=== PATIENT | male | born 1990 | race Caucasian/White ===

== ENCOUNTER 2017-09-27 11:05 | Emergency (ER) | payer SELFPAY ==
[~2017-09-27] VITALS: Ht 172.7 cm; Wt 86.0 kg
[~2017-09-27 11:05] MED LIST: AMOX875 PO; NAPR500 PO; Z.0.NO CURRENT MEDS
[2017-09-27 11:19] VITALS: BP 136/67; PULSE 65; RESP 18; TEMP 98.2; O2SAT 98
--- NOTE | 2017-09-27 12:00 | PD ---
HPI Chief Complaint: Cardiac Complaint Time Seen by Provider: 11:41 Travel History International Travel<30 days: No Contact w/Intl Traveler<30days: No Traveled to known affect area: No History of Present Illness HPI This 26-year-old male says been having chest pain off and on for several months. The pain can be on either side of the chest. A little. It is in the front of the chest. It can last from anywhere from several seconds to a few minutes. He has not noted anything in particular that seems to bring it on the he seems to get up more when he is at work the pain is aggravated by breathing when he gets it. He does feel short of breath with the pain but is not short of breath. He is generally healthy. He has no history of hypertension or diabetes. His grandmother of a cardiac event. Both parents are alive. He does not smoke. Denies any recent substance abuse PFSH Past Medical History Medical History: Denies Significant Hx Autoimmune Disease: No Anxiety: No Depression: No Cardiovascular Problems: No Diminished Hearing: No Genitourinary: No Musculoskeletal: No Neurologic: No Psychiatric: No Respiratory: No Immunizations Current: Yes Influenza Vaccination: No ?: Not Past Surgical History Abdominal Surgery: Yes (HERNIA REPAIR) Other Surgery: No Social History Alcohol Use: No Tobacco Use: No Substance Use: No Allergies-Medications (Allergen,Severity, Reaction): Coded Allergies: No Known Allergies (Verified Adverse Reaction, Unknown, 09/27/17) Reported Meds & Prescriptions Reported Meds & Active Scripts Active No Active Prescriptions or Reported Medications Review of Systems General / Constitutional: No: Fever, Chills Eyes: No: Diploplia, Blurred Vision HENT: No: Headaches, Vertigo Cardiovascular: Positive: Chest Pain or Discomfort, No: Syncope Respiratory: Positive: Pleuritic Pain, No: Wheezing, Sneezing Gastrointestinal: No: Nausea, Vomiting Genitourinary: No: Urgency, Frequency Musculoskeletal: No: Myalgias Skin: No Lumps, No Hives Neurologic: No: Weakness Endocrine: No: Heat Intolerance, Cold Intolerance Hematologic/Lymphatic: No: Easy Bruising Physical Exam Narrative GENERAL: Well-developed male SKIN: Focused skin assessment warm/dry. HEAD: Atraumatic. Normocephalic. EYES: Pupils equal and round. No scleral icterus. No injection or drainage. ENT: No nasal bleeding or discharge. Mucous membranes pink and moist. NECK: Trachea midline. No JVD. CARDIOVASCULAR: Regular rate and rhythm. No murmur appreciated. RESPIRATORY: No accessory muscle use. Clear to auscultation. Breath sounds equal bilaterally. Unable to reproduce the pain with palpation GASTROINTESTINAL: Abdomen soft, non-tender, nondistended. Hepatic and splenic margins not palpable. MUSCULOSKELETAL: No obvious deformities. No clubbing. No cyanosis. No edema. NEUROLOGICAL: Awake and alert. No obvious cranial nerve deficits. Motor grossly within normal limits. Normal speech. PSYCHIATRIC: Appropriate mood and affect; insight and judgment normal. Data Data Last Documented VS Vital Signs Date Time Temp Pulse Resp B/P (MAP) Pulse Ox O2 Delivery O2 Flow Rate FiO2 09/27/17 13:00 68 16 138/61 (86) 98 09/27/17 11:19 98.2 Orders Orders Electrocardiogram (09/27/17 11:57) Complete Blood Count With Diff (09/27/17 11:57) Basic Metabolic Panel (Bmp) (09/27/17 11:57) Troponin I (09/27/17 11:57) Chest, Pa & Lat (09/27/17 11:57) Labs Laboratory Tests Test 09/27/17 12:20 09/27/17 13:00 White Blood Count 3.9 TH/MM3 Red Blood Count 5.44 MIL/MM3 Hemoglobin 15.0 GM/DL Hematocrit 46.2 % Mean Corpuscular Volume 85.0 FL Mean Corpuscular Hemoglobin 27.6 PG Mean Corpuscular Hemoglobin Concent 32.4 % Red Cell Distribution Width 12.8 % Platelet Count 210 TH/MM3 Mean Platelet Volume 8.4 FL Neutrophils (%) (Auto) 39.5 % Lymphocytes (%) (Auto) 44.2 % Monocytes (%) (Auto) 8.1 % Eosinophils (%) (Auto) 5.5 % Basophils (%) (Auto) 2.7 % Neutrophils # (Auto) 1.5 TH/MM3 Lymphocytes # (Auto) 1.8 TH/MM3 Monocytes # (Auto) 0.3 TH/MM3 Eosinophils # (Auto) 0.2 TH/MM3 Basophils # (Auto) 0.1 TH/MM3 CBC Comment DIFF FINAL Differential Comment Blood Urea Nitrogen 13 MG/DL Creatinine 1.20 MG/DL Random Glucose 116 MG/DL Calcium Level 8.4 MG/DL Sodium Level 139 MEQ/L Potassium Level 3.8 MEQ/L Chloride Level 106 MEQ/L Carbon Dioxide Level 26.5 MEQ/L Anion Gap 7 MEQ/L Estimat Glomerular Filtration Rate 74 ML/MIN Troponin I LESS THAN 0.02 NG/ML MDM Medical Decision Making Medical Screen Exam Complete: Yes Emergency Medical Condition: Yes Medical Record Reviewed: Yes Differential Diagnosis Differential includes coronary artery disease, pericarditis, chest wall pain, atypical chest pain Narrative Course EKG shows normal sinus rhythm. Troponin is negative. Chest x-ray negative. Patient is stable for discharge etiology of the pain has not been determined but it is not suggestive of cardiac pain Diagnosis Primary Impression: Atypical chest pain Additional Instructions: Return as needed Scripts No Active Prescriptions or Reported Meds Disposition: 01 DISCHARGE HOME Condition: Stable Mamadou Cavazos MD Sep 27, 2017 12:00
[2017-09-27 12:47] LABS: AUTOMATED NEUTROPHIL # 1.5 TH/MM3 (1.8-7.7); BASOPHIL # 0.1 TH/MM3 (0-0.2); BASOPHIL % 2.7 % (0.0-2.0); EOSINOPHIL # 0.2 TH/MM3 (0-0.4); EOSINOPHIL % 5.5 % (0.0-4.0); HEMATOCRIT 46.2 % (39.0-51.0); LYMPH % 44.2 % (9.0-44.0); LYMPHOCYTE # 1.8 TH/MM3 (1.0-4.8); MEAN CORPUSCULAR HEMOGLOBIN 27.6 PG (27.0-34.0); MEAN CORPUSCULAR HGB CONC 32.4 % (32.0-36.0); MEAN PLATELET VOLUME 8.4 FL (7.0-11.0); MONO % 8.1 % (0.0-8.0); MONOCYTE # 0.3 TH/MM3 (0-0.9); NEUT % 39.5 % (16.0-70.0); PLATELET COUNT 210 TH/MM3 (150-450); RED BLOOD COUNT 5.44 MIL/MM3 (4.50-5.90); RED CELL DISTRIBUTION WIDTH 12.8 % (11.6-17.2); WHITE BLOOD COUNT 3.9 TH/MM3 (4.0-11.0)
--- NOTE | 2017-09-27 12:50 | RADRPT ---
EXAM DATE/TIME: 09/27/2017 12:30 [facility] COMPARISON: No previous studies available for comparison. INDICATIONS : Intermittent chest pain. MEDICAL HISTORY : None. SURGICAL HISTORY : None. ENCOUNTER: Initial ACUITY: 2 months PAIN SCORE: 8/10 LOCATION: Bilateral chest FINDINGS: PA and lateral views of the chest demonstrate the lungs to be symmetrically aerated without evidence of mass, infiltrate or effusion. The cardiomediastinal contours are unremarkable. Osseous structure s are intact. CONCLUSION: Normal examination for a patient of this age. Oskar Heck MD on September 27, 2017 at 12:49 Board Certified Radiologist. This report was verified electronically.
[2017-09-27 13:00] VITALS: BP 138/61; PULSE 68; RESP 16; O2SAT 98
[2017-09-27 13:22] LABS: CHLORIDE 106 MEQ/L (98-107); SODIUM (NA) 139 MEQ/L (136-145)
[2017-09-27 13:24] LABS: CALCIUM 8.4 MG/DL (8.5-10.1)
[2017-09-27 13:25] LABS: BICARBONATE 26.5 MEQ/L (21.0-32.0); BLOOD UREA NITROGEN 13 MG/DL (7-18); GLUCOSE,RANDOM 116 MG/DL (74-106)
[2017-09-27 13:29] LABS: GLOMERULAR FILTRATION RATE 74 ML/MIN (>89)
[2017-09-27 13:33] LABS: TROPONIN I LESS THAN 0.02 NG/ML (0.02-0.05)
--- NOTE | 2017-09-28 20:24 | EKG ---
Date Performed: 09/27/2017 Time Performed: 11:10:46 PTAGE: 26 years EKG: Sinus rhythm Since previous tracing, no significant change noted NORMAL ECG PREVIOUS TRACING : 07/24/2010 12.23.20 DOCTOR: Yoel Flores Interpretating Date/Time 09/28/2017 20:22:00
== END 2017-09-27 13:47 | disposition home or self-care (01) ==
LOC: PHED 11:05
DX: R07.89 Other chest pain (principal)
CPT/HCPCS: 71046; 80048; 84484; 85025; 93005; 99285